=== PATIENT | female | born 1960 | race Caucasian/White ===

== ENCOUNTER → 2017-03-17 | Outpatient (CLI) | payer BC ==
[~2017-03-17] MED LIST: MULTI VITAMINS1 TAB PO; NIGHT-TIME COL300 ML PO; NORCO 325 MG-51 TAB PO; PROBIOTIC FORMU1 CAP PO; ZOFRAN ODT4 MG PO
== END ==
LOC: MC.RAD 16:14
DX: Z12.31 Encounter for screening mammogram for malignant neoplasm of breast (principal); N64.89 Other specified disorders of breast

== ENCOUNTER → 2017-03-26 | Outpatient (CLI) | payer BC | LOC: MC.RAD 11:16 | DX: N64.89 Other specified disorders of breast (principal); R92.2 Inconclusive mammogram ==

== ENCOUNTER → 2017-09-28 | Outpatient (CLI) | payer BC | LOC: MC.RAD 07:13 | DX: R92.8 Other abnormal and inconclusive findings on diagnostic imaging of breast (principal) ==

== ENCOUNTER 2018-03-01 11:40 | Emergency (ER) | payer OTHER, BC ==
[~2018-03-01] VITALS: Ht 170.2 cm; Wt 88.2 kg
[2018-03-01 11:42] VITALS: BP 136/91; PULSE 75; TEMP 99.3
[2018-03-01] MEDS ORDERED: FLEXERIL 1010 MG/TAB PO (13:38)
== END 2018-03-01 13:50 | disposition home or self-care (01) ==
LOC: COL.ER 11:40
DX: S16.1XXA Strain of muscle, fascia and tendon at neck level, initial encounter (principal); M25.561 Pain in right knee; R40.2412 Glasgow coma scale score 13-15, at arrival to emergency department; V49.40XA Driver injured in collision with unspecified motor vehicles in traffic accident, initial encounter

== ENCOUNTER 2018-05-11 10:52 | Outpatient (RCR) | payer OTHER | END 2018-08-09 | disposition home or self-care (01) | LOC: WSOH | DX: S16.1XXA Strain of muscle, fascia and tendon at neck level, initial encounter (principal); V43.52XA Car driver injured in collision with other type car in traffic accident, initial encounter; Y92.410 Unspecified street and highway as the place of occurrence of the external cause; Y99.0 Civilian activity done for income or pay; Z79.899 Other long term (current) drug therapy ==

== ENCOUNTER → 2018-05-11 | Outpatient (CLI) | payer BC ==
[~2018-05-11] MED LIST changes: +FLEXERIL 1010 MG/TAB PO
== END ==
LOC: MC.RAD 06:48
DX: Z12.31 Encounter for screening mammogram for malignant neoplasm of breast (principal)

== ENCOUNTER → 2019-06-28 | Outpatient (CLI) | payer BC | LOC: MC.RAD 10:51 | DX: Z12.31 Encounter for screening mammogram for malignant neoplasm of breast (principal) ==

== ENCOUNTER → 2020-09-10 | Outpatient (CLI) | payer BC ==
[~2020-09-10] MED LIST changes: +ONE-A-DAY ESSE1 EACH PO; +TYLENOL PM EXTR1 TA1 PO
== END ==
LOC: MC.RAD 07:23
DX: Z12.31 Encounter for screening mammogram for malignant neoplasm of breast (principal)

== ENCOUNTER → 2020-10-04 | Outpatient (CLI) | payer BC ==
[~2020-10-04] VITALS: Ht 170.2 cm; Wt 79.2 kg
[2020-10-04 09:26] VITALS: BP 136/83; PULSE 70
[2020-10-04 11:00] VITALS: BP 126/76; PULSE 62
== END ==
LOC: COL.RAD 09-25 06:30
DX: G54.2 Cervical root disorders, not elsewhere classified (principal)
CPT/HCPCS: J1100

== ENCOUNTER → 2020-10-26 | Outpatient (CLI) | payer BC ==
[~2020-10-26] VITALS: Ht 170.2 cm; Wt 80.9 kg
[2020-10-26 12:02] VITALS: BP 142/91; PULSE 68
[2020-10-26 13:03] VITALS: BP 151/85; PULSE 71
== END ==
LOC: COL.RAD 07:00
DX: G54.2 Cervical root disorders, not elsewhere classified (principal); M54.2 Cervicalgia
CPT/HCPCS: J1100; Q9967

== ENCOUNTER → 2021-11-28 | Outpatient (CLI) | payer BC | LOC: MC.RAD 15:33 | DX: Z12.31 Encounter for screening mammogram for malignant neoplasm of breast (principal) ==